=== PATIENT | female | born 1995 | race Caucasian/White ===

== ENCOUNTER 2019-12-30 22:05 | Emergency (ER) | payer OTHER ==
[2019-12-30] MEDS: HYDROmorphone 2 MG/ML SDV IM ONE ×2 (22:46→22:59)
[2019-12-30] MEDS ORDERED: Ketorolac 60 MG/2 ML SDV IM ONE (22:51)
--- NOTE | 2019-12-30 22:56 | EDM.PDOC ---
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 Started about a week ago,felt initially like period cramps. LMP was 5 weeks ago,and she reports a positive urine test a few days ao at home. Today it got worse,with onset of vaginal bleeding ED ROS GENERAL - Review of Systems Review Of Systems: Comprehensive ROS is negative, except as noted in HPI. ED EXAM - Physical Exam Exam: See Below Exam Limited By: No Limitations General Appearance: Alert, WD/WN Neck: Normal Inspection Respiratory/Chest: No Respiratory Distress Cardiovascular: Normal Peripheral Pulses GI/Abdominal Exam: Normal Bowel Sounds, Tender (LLQ) Neurological: Alert Psychiatric: Anxious, Tearful Course - Orders/Labs/Meds Labs: Laboratory Tests 12/30/19 12/30/19 12/30/19 Range/Units 22:30 22:30 22:45 WBC 11.2 (4.5-12.0) X10-3/uL RBC 4.19 (3.23-5.20) x10(6)uL Hgb 11.9 (11.5-15.5) g/dL Hct 37.0 (30.0-51.3) % MCV 88.4 (80-96) fL MCH 28.4 (27.7-33.6) pg MCHC 32.1 L (32.2-35.4) g/dL RDW 12.5 (11.5-15.5) % Plt Count 378 H (125-369) X10(3)uL MPV 9.1 (7.4-10.4) fL Neut % (Auto) 62.1 (46-82) % Lymph % (Auto) 29.1 (13-37) % [place] % (Auto) 7.3 (4-12) % Eos % (Auto) 1 (1.0-5.0) % Baso % (Auto) 1 (0-2) % Neut # (Auto) 7.0 (1.6-8.3) # Lymph # (Auto) 3.2 (0.6-5.0) # Bladen # (Auto) 0.8 (0.0-1.3) # Eos # (Auto) 0.1 (0.0-0.8) # Baso # (Auto) 0.1 (0.0-0.2) # Sodium (135-145) mmol/L Potassium (3.5-5.3) mmol/L Chloride (100-110) mmol/L Carbon Dioxide (21-32) mmol/L BUN (7-18) mg/dL Creatinine (0.55-1.02) mg/dL Est Cr Clr Drug Dosing Estimated GFR (MDRD) (>60) BUN/Creatinine Ratio (9-20) Glucose (80-116) mg/dL Calcium (8.6-10.2) mg/dL HCG, Quant (<5) mIU/mL Urine Color Red (YELLOW) Urine Appearance Cloudy (CLEAR) Urine pH 7.0 H (5.0-6.5) Ur Specific [place] 1.015 (1.010-1.025) Urine Protein 100 H (NEGATIVE) mg/dL Urine Glucose (UA) Normal (NORMAL) mg/dL Urine Ketones Negative (NEGATIVE) mg/dL Urine Occult Blood Large H (NEGATIVE) Urine Nitrite Negative (NEGATIVE) Urine Bilirubin Negative (NEGATIVE) Urine Urobilinogen Normal (NEGATIVE) mg/dL Ur Leukocyte Esterase Moderate H (NEGATIVE) Urine RBC Packed H (0-5) Urine WBC 0-5 (0-5) Ur Squamous Epith Cells Rare (NS,R,O) Urine Bacteria Rare H (NS) Urine HCG, Qual Negative (NEGATIVE) 12/30/19 12/30/19 Range/Units 22:45 22:45 WBC (4.5-12.0) X10-3/uL RBC (3.23-5.20) x10(6)uL Hgb (11.5-15.5) g/dL Hct (30.0-51.3) % MCV (80-96) fL MCH (27.7-33.6) pg MCHC (32.2-35.4) g/dL RDW (11.5-15.5) % Plt Count (125-369) X10(3)uL MPV (7.4-10.4) fL Neut % (Auto) (46-82) % Lymph % (Auto) (13-37) % [place] % (Auto) (4-12) % Eos % (Auto) (1.0-5.0) % Baso % (Auto) (0-2) % Neut # (Auto) (1.6-8.3) # Lymph # (Auto) (0.6-5.0) # [place] # (Auto) (0.0-1.3) # Eos # (Auto) (0.0-0.8) # Baso # (Auto) (0.0-0.2) # Sodium 139 (135-145) mmol/L Potassium 3.9 (3.5-5.3) mmol/L Chloride 103 (100-110) mmol/L Carbon Dioxide 28 (21-32) mmol/L BUN 15 (7-18) mg/dL Creatinine 1.1 H (0.55-1.02) mg/dL Est Cr Clr Drug Dosing TNP Estimated GFR (MDRD) > 60 (>60) BUN/Creatinine Ratio 13.6 (9-20) Glucose 87 (80-116) mg/dL Calcium 8.9 (8.6-10.2) mg/dL HCG, Quant < 5 L (<5) mIU/mL Urine Color (YELLOW) Urine Appearance (CLEAR) Urine pH (5.0-6.5) Ur Specific [place] (1.010-1.025) Urine Protein (NEGATIVE) mg/dL Urine Glucose (UA) (NORMAL) mg/dL Urine Ketones (NEGATIVE) mg/dL Urine Occult Blood (NEGATIVE) Urine Nitrite (NEGATIVE) Urine Bilirubin (NEGATIVE) Urine Urobilinogen (NEGATIVE) mg/dL Ur Leukocyte Esterase (NEGATIVE) Urine RBC (0-5) Urine WBC (0-5) Ur Squamous Epith Cells (NS,R,O) Urine Bacteria (NS) Urine HCG, Qual (NEGATIVE) Meds: Medications Discontinued Medications Generic Name Dose Route Start Last Admin Trade Name Freq PRN Reason Stop Dose Admin Hydromorphone HCl 1 mg 12/30/19 22:43 12/30/19 22:59 Dilaudid IM 12/30/19 22:44 Not Given ONETIME ONE Ketorolac Tromethamine 60 mg 12/30/19 22:51 12/30/19 22:55 Toradol IM 12/30/19 22:52 60 mg ONETIME ONE Administration Departure - Departure Time of Disposition: 05:27 Disposition: Home, Self-Care 01 Condition: Good Clinical Impression: Complete - Discharge Information Instructions: Threatened Miscarriage, [id number] Referrals: PCP,None [Primary Care Provider] - Forms: ED Department Discharge Care Plan Goals: Follow up with primary care provider early next week. - Problem List & Annotations (1) Complete SNOMED Code(s): 095374184 Code(s): O03.9 - COMPLETE OR UNSP SPONTANEOUS WITHOUT COMPLICATION Status: Acute - Problem List Review Problem List Initiated/Reviewed/Updated: Yes - Assessment/Plan Plan: We are unable to obtain US tonight.HCG test is less than 5(Quant) and urine preg is negative. I gave her Toradol 60 mg IM. Follow up PRN
== END 2019-12-30 23:30 | disposition home or self-care (01) ==
LOC: FB.ED 22:05
DX: O03.9 Complete or unspecified spontaneous abortion without complication (principal)
CPT/HCPCS: 36415; 80048; 81001; 81025; 84702; 85025; 96372; 99284; J1885; J1170

== ENCOUNTER 2020-01-21 18:55 | Emergency (ER) | payer MEDICAID, OTHER ==
[2020-01-21] MEDS ORDERED: Sodium Chloride 0.9% 10 ML Syringe FLUSH PRN (19:09)
[2020-01-21] MEDS ORDERED: Sodium Chloride 0.9% 1,000 ML IV SCH (19:15)
[2020-01-21] MEDS ORDERED: Ketorolac 30 MG/ML SDV IVPUSH ONE (19:34)
--- NOTE | 2020-01-21 20:48 | EDM.PDOC ---
ED HPI GENERAL MEDICAL PROBLEM - General Chief Complaint: General Stated Complaint: syncope Time Seen by Provider: 01/21/20 19:10 Source of Information: Reports: Patient, EMS History Limitations: Reports: No Limitations - History of Present Illness INITIAL COMMENTS - FREE TEXT/NARRATIVE: Patient presented to the ED because of syncopal episode at noon yesterday. The syncopal episode was preceded by nausea and vomiting. Last night while at [employer] she apparently felt dizzy ,passed out and and had a brief episode of seizure. She also c/o 10/26 headache ove the frontal area. denies any fever,neck stiffness. - Related Data Allergies Allergy/AdvReac Type Severity Reaction Status Date / Time topiramate [From Topamax] Allergy Rash Verified 01/21/20 19:04 venlafaxine [From Effexor] Allergy Rash Verified 01/21/20 19:04 Home Meds: Home Meds traZODone 200 mg PO BEDTIME 01/04/20 [History] Past Medical History Psychiatric History: Reports: Depression Other Psychiatric History: Takes meds. Social & Family History - Tobacco Use Smoking Status *Q: Never Smoker - Caffeine Use Caffeine Use: Reports: None - Recreational Drug Use Recreational Drug Use: No ED ROS GENERAL - Review of Systems Review Of Systems: See Below Constitutional: Reports: No Symptoms HEENT: Reports: No Symptoms Respiratory: Reports: No Symptoms Cardiovascular: Reports: No Symptoms Endocrine: Reports: No Symptoms GI/Abdominal: Reports: Nausea, Vomiting : Reports: No Symptoms Musculoskeletal: Reports: No Symptoms Skin: Reports: No Symptoms Neurological: Reports: Headache, Seizure, Syncope Psychiatric: Reports: No Symptoms Hematologic/Lymphatic: Reports: No Symptoms ED EXAM, GENERAL - Physical Exam Exam: See Below Exam Limited By: No Limitations General Appearance: Alert, No Apparent Distress Eye Exam: Bilateral Eye: PERRL Ears: Normal External Exam, Normal Canal, Hearing Grossly Normal Nose: Normal Inspection, Normal Mucosa, No Blood Throat/Mouth: Normal Inspection, Normal Lips, Normal Teeth, Normal Gums Head: Atraumatic, Normocephalic Neck: Normal Inspection, Supple, Non-Tender, Full Range of Motion Respiratory/Chest: No Respiratory Distress, Lungs Clear, Normal Breath Sounds Cardiovascular: Normal Peripheral Pulses, Regular Rate, Rhythm, No Edema, No Gallop GI/Abdominal: Normal Bowel Sounds, Soft, Non-Tender, No Organomegaly Back Exam: Normal Inspection, Full Range of Motion Extremities: Normal Inspection, Normal Range of Motion, Non-Tender Neurological: Alert, Oriented, CN II-XII Intact, Normal Cognition, Normal Gait Psychiatric: Normal Affect, Flat Affect Skin Exam: Warm, Dry, Intact Course - Vital Signs Text/Narrative:: Labs/EKG/Head CT was discussed with patient NS 1 L bolus Toradol 30 mg IV x1 Last Recorded V/S: Last Vital Signs Temp 36.9 C 01/21/20 19:00 Pulse 70 01/21/20 19:00 Resp 16 01/21/20 19:00 BP 127/77 01/21/20 19:00 Pulse Ox 99 01/21/20 19:00 - Orders/Labs/Meds Orders: Active Orders 24 hr Category Date Time Status EKG Documentation Completion [RC] ASDIRECTED Care 01/21/20 19:10 Active Head wo Cont [CT] Stat Exams 01/21/20 19:09 Taken DRUG SCREEN, URINE ALERE [URCHEM] Stat Lab 01/21/20 19:24 Ordered HCG QUALITATIVE,URINE [URCHEM] Stat Lab 01/21/20 19:09 Ordered Sodium Chloride 0.9% [Normal Saline] 1,000 ml Med 01/21/20 19:15 Active IV ASDIRECTED Sodium Chloride 0.9% [Saline Flush] Med 01/21/20 19:09 Active 10 ml FLUSH ASDIRECTED PRN Saline Lock Insert [OM.PC] Routine Oth 01/21/20 19:09 Ordered EKG 12 Lead [EK] Routine Ther 01/21/20 19:09 Ordered Medication Orders Sodium Chloride (Normal Saline) 1,000 mls @ 999 mls/hr IV ASDIRECTED YUKI Last Admin: 01/21/20 19:20 Dose: 999 mls/hr Documented by: CLEVE Sodium Chloride (Saline Flush) 10 ml FLUSH ASDIRECTED PRN PRN Reason: Keep Vein Open Last Admin: 01/21/20 19:00 Dose: 10 ml Documented by: CLEVE Labs: Laboratory Tests 01/21/20 01/21/20 01/21/20 Range/Units 19:25 19:25 19:25 WBC 9.1 (4.5-12.0) X10-3/uL RBC 4.24 (3.23-5.20) x10(6)uL Hgb 12.5 (11.5-15.5) g/dL Hct 37.3 (30.0-51.3) % MCV 87.9 (80-96) fL MCH 29.4 (27.7-33.6) pg MCHC 33.5 (32.2-35.4) g/dL RDW 12.8 (11.5-15.5) % Plt Count 331 (125-369) X10(3)uL MPV 9.0 (7.4-10.4) fL Neut % (Auto) 62.1 (46-82) % Lymph % (Auto) 26.2 (13-37) % [place] % (Auto) 8.8 (4-12) % Eos % (Auto) 3 (1.0-5.0) % Baso % (Auto) 0 (0-2) % Neut # (Auto) 5.7 (1.6-8.3) # Lymph # (Auto) 2.4 (0.6-5.0) # [place] # (Auto) 0.8 (0.0-1.3) # Eos # (Auto) 0.2 (0.0-0.8) # Baso # (Auto) 0.0 (0.0-0.2) # Sodium 139 (135-145) mmol/L Potassium 3.9 (3.5-5.3) mmol/L Chloride 102 (100-110) mmol/L Carbon Dioxide 28 (21-32) mmol/L BUN 11 (7-18) mg/dL Creatinine 1.1 H (0.55-1.02) mg/dL Est Cr Clr Drug Dosing 80.24 mL/min Estimated GFR (MDRD) > 60 (>60) BUN/Creatinine Ratio 10.0 (9-20) Glucose 88 (80-116) mg/dL Calcium 8.7 (8.6-10.2) mg/dL Total Bilirubin 0.4 (0.1-1.3) mg/dL AST 17 (5-25) IU/L ALT 20 (12-36) U/L Alkaline Phosphatase 68 (56-112) IU/L Total Protein 7.6 (6.0-8.0) g/dL Albumin 3.5 (3.5-5.2) g/dL Globulin 4.1 g/dL Albumin/Globulin Ratio 0.9 TSH, Ultra Sensitive 2.13 (0.36-3.74) IU/mL Ethyl Alcohol (<0.03) % 01/21/20 Range/Units 19:25 WBC (4.5-12.0) X10-3/uL RBC (3.23-5.20) x10(6)uL Hgb (11.5-15.5) g/dL Hct (30.0-51.3) % MCV (80-96) fL MCH (27.7-33.6) pg MCHC (32.2-35.4) g/dL RDW (11.5-15.5) % Plt Count (125-369) X10(3)uL MPV (7.4-10.4) fL Neut % (Auto) (46-82) % Lymph % (Auto) (13-37) % [place] % (Auto) (4-12) % Eos % (Auto) (1.0-5.0) % Baso % (Auto) (0-2) % Neut # (Auto) (1.6-8.3) # Lymph # (Auto) (0.6-5.0) # [place] # (Auto) (0.0-1.3) # Eos # (Auto) (0.0-0.8) # Baso # (Auto) (0.0-0.2) # Sodium (135-145) mmol/L Potassium (3.5-5.3) mmol/L Chloride (100-110) mmol/L Carbon Dioxide (21-32) mmol/L BUN (7-18) mg/dL Creatinine (0.55-1.02) mg/dL Est Cr Clr Drug Dosing mL/min Estimated GFR (MDRD) (>60) BUN/Creatinine Ratio (9-20) Glucose (80-116) mg/dL Calcium (8.6-10.2) mg/dL Total Bilirubin (0.1-1.3) mg/dL AST (5-25) IU/L ALT (12-36) U/L Alkaline Phosphatase (56-112) IU/L Total Protein (6.0-8.0) g/dL Albumin (3.5-5.2) g/dL Globulin g/dL Albumin/Globulin Ratio TSH, Ultra Sensitive (0.36-3.74) IU/mL Ethyl Alcohol < 0.03 (<0.03) % Meds: Medications Generic Name Dose Route Start Last Admin Trade Name Jeffrey PRN Reason Stop Dose Admin Sodium Chloride 1,000 mls @ 999 mls/hr 01/21/20 19:15 01/21/20 19:20 Normal Saline IV 999 mls/hr ASDIRECTED YUKI Administration Sodium Chloride 10 ml 01/21/20 19:09 01/21/20 19:00 Saline Flush FLUSH 10 ml ASDIRECTED PRN Administration Keep Vein Open Discontinued Medications Generic Name Dose Route Start Last Admin Trade Name Jeffrey PRN Reason Stop Dose Admin Ketorolac Tromethamine 30 mg 01/21/20 19:34 01/21/20 19:48 Toradol IVPUSH 01/21/20 19:35 30 mg ONETIME ONE Administration Departure - Departure Time of Disposition: 20:55 Disposition: Home, Self-Care 01 Condition: Good Clinical Impression: Dehydration, Syncope - Discharge Information Instructions: Dehydration, Adult, [id number], Syncope, [id number] Referrals: PCP,None [Primary Care Provider] - Forms: ED Department Discharge Additional Instructions: Please read discharge instructions on dehydration and syncope Increase oral fluids Take ibuprofen 800 mg with tylenol 1000 mg every 8 hours as needed for pain Follow up with your doctor so you can be referred to see a Neurologist(brain specialist) who will evaluate you if you have seizure or not Sepsis Event Note (ED) - Evaluation Sepsis Screening Result: No Definite Risk - Focused Exam Vital Signs: Vital Signs Temp Pulse Resp BP Pulse Ox 01/21/20 19:00 36.9 C 70 16 127/77 99 - My Orders Last 24 Hours: My Active Orders 01/21/20 19:09 Head wo Cont [CT] Stat HCG QUALITATIVE,URINE [URCHEM] Stat Sodium Chloride 0.9% [Saline Flush] 10 ml FLUSH ASDIRECTED PRN Saline Lock Insert [OM.PC] Routine EKG 12 Lead [EK] Routine 01/21/20 19:10 EKG Documentation Completion [RC] ASDIRECTED 01/21/20 19:15 Sodium Chloride 0.9% [Normal Saline] 1,000 ml IV ASDIRECTED 01/21/20 19:24 DRUG SCREEN, URINE ALERE [URCHEM] Stat - Assessment/Plan Last 24 Hours: My Active Orders 01/21/20 19:09 Head wo Cont [CT] Stat HCG QUALITATIVE,URINE [URCHEM] Stat Sodium Chloride 0.9% [Saline Flush] 10 ml FLUSH ASDIRECTED PRN Saline Lock Insert [OM.PC] Routine EKG 12 Lead [EK] Routine 01/21/20 19:10 EKG Documentation Completion [RC] ASDIRECTED 01/21/20 19:15 Sodium Chloride 0.9% [Normal Saline] 1,000 ml IV ASDIRECTED 01/21/20 19:24 DRUG SCREEN, URINE ALERE [URCHEM] Stat
== END 2020-01-21 21:53 | disposition home or self-care (01) ==
LOC: FB.ED 18:55
DX: E86.0 Dehydration (principal); F32.9 Major depressive disorder, single episode, unspecified; Z79.899 Other long term (current) drug therapy; Z88.8 Allergy status to other drugs, medicaments and biological substances
CPT/HCPCS: 36415; 70450; 80053; 80307; 84443; 85025; 93005; 96361; 96374; 99285; J1885; J7030

== ENCOUNTER 2020-03-22 21:17 | Emergency (ER) | payer BC, MEDICAID, OTHER ==
--- NOTE | 2020-03-22 22:33 | EDM.PDOC ---
ED HPI GENERAL MEDICAL PROBLEM - General Chief Complaint: Abdominal Pain Stated Complaint: cramps Time Seen by Provider: 03/22/20 21:30 Source of Information: Reports: Patient History Limitations: Reports: No Limitations - History of Present Illness INITIAL COMMENTS - FREE TEXT/NARRATIVE: bilateral flank pains since about 3-4 weeks , was seen and treated forUI , complete course of antibiotics and cramps still present in both fanks andin the suprapubic region has normal BM , though thought she may be constipated in an instant has had gaseous distension pt is trying to get - Related Data Allergies Allergy/AdvReac Type Severity Reaction Status Date / Time topiramate [From Topamax] Allergy Rash Verified 01/21/20 19:04 venlafaxine [From Effexor] Allergy Rash Verified 01/21/20 19:04 Home Meds: Home Meds traZODone 200 mg PO BEDTIME 01/04/20 [History] Escitalopram [Lexapro] 20 mg PO DAILY 03/22/20 [History] buPROPion HCL [Wellbutrin Xl] 300 mg PO DAILY 03/22/20 [History] Past Medical History HEENT History: Reports: None Cardiovascular History: Reports: None Respiratory History: Reports: None Gastrointestinal History: Reports: None Genitourinary History: Reports: None [employer] History: Reports: Spontaneous Neurological History: Reports: None Psychiatric History: Reports: Anxiety, Depression Other Psychiatric History: Takes meds. Endocrine/Metabolic History: Reports: Obesity/BMI 30+ Hematologic History: Reports: None Immunologic History: Reports: None Oncologic (Cancer) History: Reports: None Dermatologic History: Reports: None - Infectious Disease History Infectious Disease History: Reports: Novel Coronavirus Social & Family History - Family History Family Medical History: No Pertinent Family History - Tobacco Use Tobacco Use Status *Q: Never Tobacco User - Caffeine Use Caffeine Use: Reports: None - Recreational Drug Use Recreational Drug Use: No ED ROS GENERAL - Review of Systems Review Of Systems: See Below Constitutional: Reports: No Symptoms, Weight Gain Respiratory: Reports: No Symptoms Cardiovascular: Reports: No Symptoms Endocrine: Reports: No Symptoms GI/Abdominal: Reports: Abdominal Pain, Constipation, Distension, Flatus. Denies: Decreased Appetite, Mucous in Stool, Nausea, Stool Incontinence, Vomiting : Reports: No Symptoms Musculoskeletal: Reports: No Symptoms Skin: Reports: No Symptoms ED EXAM, GI/ABD - Physical Exam Exam: See Below Exam Limited By: No Limitations General Appearance: Alert, WD/WN, Moderate Distress Eyes: Bilateral: EOMI Ears: Normal External Exam Nose: Normal Inspection Throat/Mouth: Normal Oropharynx Head: Atraumatic, Normocephalic Neck: Normal Inspection, Supple Respiratory/Chest: No Respiratory Distress, Lungs Clear Cardiovascular: Normal Peripheral Pulses, No Rub GI/Abdominal Exam: Normal Bowel Sounds, Soft, Non-Tender, Distended Rectal (Female) Exam: Normal Rectal Tone Back Exam: Normal Inspection Neurological: Alert, Oriented, CN II-XII Intact Psychiatric: Normal Affect Skin Exam: Warm Course - Vital Signs Last Recorded V/S: Last Vital Signs Temp 36.7 C 03/22/20 21:17 Pulse 77 03/22/20 21:17 Resp 16 03/22/20 21:17 BP 124/75 03/22/20 21:17 Pulse Ox 99 03/22/20 21:17 - Orders/Labs/Meds Labs: Laboratory Tests 03/22/20 03/22/20 Range/Units 21:39 21:40 HCG, Quant < 5 L (<5) mIU/mL Urine Color Yellow (YELLOW) Urine Appearance Clear (CLEAR) Urine pH 5.0 (5.0-6.5) Ur Specific [place] 1.025 (1.010-1.025) Urine Protein Negative (NEGATIVE) mg/dL Urine Glucose (UA) Normal (NORMAL) mg/dL Urine Ketones Negative (NEGATIVE) mg/dL Urine Occult Blood Negative (NEGATIVE) Urine Nitrite Negative (NEGATIVE) Urine Bilirubin Negative (NEGATIVE) Urine Urobilinogen 1 H (NEGATIVE) mg/dL Ur Leukocyte Esterase Negative (NEGATIVE) Urine RBC 0-5 (0-5) Urine WBC 0-5 (0-5) Ur Squamous Epith Cells Few H (NS,R,O) Urine Bacteria Rare H (NS) Departure - Departure Time of Disposition: 22:31 Disposition: Home, Self-Care 01 Condition: Good Clinical Impression: Abdominal distension (gaseous), Abdominal pain - Discharge Information *PRESCRIPTION DRUG MONITORING PROGRAM REVIEWED*: Not Applicable *COPY OF PRESCRIPTION DRUG MONITORING REPORT IN PATIENT ELI: Not Applicable Instructions: Flank Pain, Adult, [id number] Referrals: PCP,None [Primary Care Provider] - Additional Instructions: Take probiotics as discussed Start vitamins Sepsis Event Note (ED) - Evaluation Sepsis Screening Result: No Definite Risk - Focused Exam Vital Signs: Vital Signs Temp Pulse Resp BP Pulse Ox 03/22/20 21:17 36.7 C 77 16 124/75 99
== END 2020-03-22 22:52 | disposition home or self-care (01) ==
LOC: FB.ED 21:17
DX: R14.0 Abdominal distension (gaseous) (principal); F41.9 Anxiety disorder, unspecified; F32.9 Major depressive disorder, single episode, unspecified; E66.9 Obesity, unspecified; Z68.32 Body mass index [BMI] 32.0-32.9, adult; Z88.8 Allergy status to other drugs, medicaments and biological substances; Z79.899 Other long term (current) drug therapy
CPT/HCPCS: 36415; 81001; 84702; 99282; 99284

== ENCOUNTER 2020-04-01 20:27 | Emergency (ER) | payer BC ==
[2020-04-01] MEDS ORDERED: Dexamethasone 4 MG Tab PO STA (20:53)
[2020-04-01] MEDS ORDERED: Ketorolac 60 MG/2 ML SDV IM ONE (20:55)
--- NOTE | 2020-04-01 21:39 | EDM.PDOC ---
ED HPI GENERAL MEDICAL PROBLEM - General Chief Complaint: Chest Pain Stated Complaint: COVID Time Seen by Provider: 04/01/20 20:40 Source of Information: Reports: Patient History Limitations: Reports: No Limitations - History of Present Illness INITIAL COMMENTS - FREE TEXT/NARRATIVE: Patient presented to the ED because of chest pain over the sternal area which started 3 days ago and is getting worse. There is no cough/cold, fever,chils. Denies any N/D. She was diagnosed with Covid on 03/27/20. Midsternal chest pain Pain Score (Numeric/FACES): 7 - Related Data Allergies Allergy/AdvReac Type Severity Reaction Status Date / Time topiramate [From Topamax] Allergy Rash Verified 04/01/20 20:45 venlafaxine [From Effexor] Allergy Rash Verified 04/01/20 20:45 Home Meds: Home Meds traZODone 100 mg PO BEDTIME 01/04/20 [History] Escitalopram [Lexapro] 20 mg PO DAILY 03/22/20 [History] buPROPion HCL [Wellbutrin Xl] 150 mg PO DAILY 03/22/20 [History] Albuterol [Ventolin HFA] 2 puff .XX Q4H PRN 04/01/20 [History] dexAMETHasone [Dexamethasone] 8 mg PO DAILY #30 tablet 04/01/20 [Rx] Past Medical History HEENT History: Reports: None Cardiovascular History: Reports: None Respiratory History: Reports: None Gastrointestinal History: Reports: None Genitourinary History: Reports: None 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 Endocrine/Metabolic History: Reports: Obesity/BMI 30+ Hematologic History: Reports: None Immunologic History: Reports: None Oncologic (Cancer) History: Reports: None Dermatologic History: Reports: None - Infectious Disease History Infectious Disease History: Reports: Novel Coronavirus Social & Family History - Family History Family Medical History: No Pertinent Family History - Caffeine Use Caffeine Use: Reports: None ED ROS GENERAL - Review of Systems Review Of Systems: See Below Constitutional: Reports: No Symptoms HEENT: Reports: No Symptoms Respiratory: Reports: No Symptoms Cardiovascular: Reports: Chest Pain Endocrine: Reports: No Symptoms GI/Abdominal: Reports: No Symptoms : Reports: No Symptoms Musculoskeletal: Reports: No Symptoms Skin: Reports: No Symptoms Neurological: Reports: No Symptoms Psychiatric: Reports: No Symptoms ED EXAM, GENERAL - Physical Exam Exam: See Below Exam Limited By: No Limitations General Appearance: Alert, No Apparent Distress Eye Exam: Bilateral Eye: PERRL Ears: Normal External Exam Nose: Normal Inspection Throat/Mouth: Normal Inspection Head: Atraumatic, Normocephalic Neck: Normal Inspection, Supple, Non-Tender Respiratory/Chest: No Respiratory Distress, Lungs Clear, Normal Breath Sounds Cardiovascular: Normal Peripheral Pulses, Regular Rate, Rhythm, No Edema GI/Abdominal: Normal Bowel Sounds, Soft, Non-Tender, No Organomegaly Back Exam: Normal Inspection Extremities: Normal Inspection, Normal Range of Motion Course - Vital Signs Text/Narrative:: Labs/EKG/CXR was discussed with patient EKG-NSR Toradol 60 mg IM x1 Decadron 10 mg PO x1 Last Recorded V/S: Last Vital Signs Temp 36.4 C 04/01/20 20:30 Pulse 72 04/01/20 20:30 Resp 18 04/01/20 20:30 BP 125/79 04/01/20 20:30 Pulse Ox 99 04/01/20 20:30 - Orders/Labs/Meds Orders: Active Orders 24 hr Category Date Time Status EKG Documentation Completion [RC] ASDIRECTED Care 04/01/20 20:57 Active Chest 1V Frontal [CR] Stat Exams 04/01/20 20:50 Taken EKG 12 Lead [EK] Routine Ther 04/01/20 20:56 Ordered Labs: Laboratory Tests 04/01/20 04/01/20 04/01/20 Range/Units 21:05 21:05 21:05 WBC 9.1 (3.0-10.3) x10-3/uL RBC 4.49 (3.60-5.20) x10(6)uL Hgb 12.8 (11.4-15.5) g/dL Hct 39.0 (34.2-48.2) % MCV 86.9 (76.7-100.5) fL MCH 28.5 (23.9-33.9) pg MCHC 32.8 (31.9-34.8) g/dL RDW 13.9 (12.3-16.5) % Plt Count 335 (151-488) x10(3)uL MPV 9.7 (7.1-12.4) fL Neut % (Auto) 61.2 (30.8-76.2) % Lymph % (Auto) 25.7 (18.4-52.1) % [place] % (Auto) 8.5 (4.4-15.7) % Eos % (Auto) 4.0 (0.6-8.1) % Baso % (Auto) 0.6 (0.2-1.5) % Neut # (Auto) 5.6 (1.5-6.3) x10-3/uL Lymph # (Auto) 2.3 (1.0-4.4) x10-3/uL [place] # (Auto) 0.8 (0.3-1.0) x10-3/uL Eos # (Auto) 0.4 (0.0-0.8) x10-3/uL Baso # (Auto) 0.1 (0.0-0.1) x10-3/uL D-Dimer, Quantitative 0.25 (0.0-0.59) mg/LFEU Sodium 140 (135-145) mmol/L Potassium 4.1 (3.5-5.3) mmol/L Chloride 102 (100-110) mmol/L Carbon Dioxide 28 (21-32) mmol/L BUN 10 (7-18) mg/dL Creatinine 0.8 (0.55-1.02) mg/dL Est Cr Clr Drug Dosing 102.39 mL/min Estimated GFR (MDRD) > 60 (>60) BUN/Creatinine Ratio 12.5 (9-20) Glucose 88 (80-116) mg/dL Calcium 9.1 (8.6-10.2) mg/dL Total Bilirubin 0.2 (0.1-1.3) mg/dL AST 14 D (5-25) IU/L ALT 20 (12-36) U/L Alkaline Phosphatase 76 (56-112) IU/L Troponin I (4.0-60.3) pg/mL NT-Pro-B Natriuret Pep (<=125) pg/mL Total Protein 7.5 (6.0-8.0) g/dL Albumin 3.5 (3.5-5.2) g/dL Globulin 4.0 g/dL Albumin/Globulin Ratio 0.9 12/14/ Range/Units 21:05 WBC (3.0-10.3) x10-3/uL RBC (3.60-5.20) x10(6)uL Hgb (11.4-15.5) g/dL Hct (34.2-48.2) % MCV (76.7-100.5) fL MCH (23.9-33.9) pg MCHC (31.9-34.8) g/dL RDW (12.3-16.5) % Plt Count (151-488) x10(3)uL MPV (7.1-12.4) fL Neut % (Auto) (30.8-76.2) % Lymph % (Auto) (18.4-52.1) % [place] % (Auto) (4.4-15.7) % Eos % (Auto) (0.6-8.1) % Baso % (Auto) (0.2-1.5) % Neut # (Auto) (1.5-6.3) x10-3/uL Lymph # (Auto) (1.0-4.4) x10-3/uL [place] # (Auto) (0.3-1.0) x10-3/uL Eos # (Auto) (0.0-0.8) x10-3/uL Baso # (Auto) (0.0-0.1) x10-3/uL D-Dimer, Quantitative (0.0-0.59) mg/LFEU Sodium (135-145) mmol/L Potassium (3.5-5.3) mmol/L Chloride (100-110) mmol/L Carbon Dioxide (21-32) mmol/L BUN (7-18) mg/dL Creatinine (0.55-1.02) mg/dL Est Cr Clr Drug Dosing mL/min Estimated GFR (MDRD) (>60) BUN/Creatinine Ratio (9-20) Glucose (80-116) mg/dL Calcium (8.6-10.2) mg/dL Total Bilirubin (0.1-1.3) mg/dL AST (5-25) IU/L ALT (12-36) U/L Alkaline Phosphatase (56-112) IU/L Troponin I 4.1 (4.0-60.3) pg/mL NT-Pro-B Natriuret Pep 41 (<=125) pg/mL Total Protein (6.0-8.0) g/dL Albumin (3.5-5.2) g/dL Globulin g/dL Albumin/Globulin Ratio Meds: Medications Discontinued Medications Generic Name Dose Route Start Last Admin Trade Name Jeffrey PRN Reason Stop Dose Admin Dexamethasone 10 mg 04/01/20 20:53 04/01/20 21:29 Dexamethasone PO 04/01/20 20:54 10 mg NOW STA Administration Ketorolac Tromethamine 60 mg 04/01/20 20:55 04/01/20 21:29 Toradol IM 04/01/20 20:56 60 mg ONETIME ONE Administration Departure - Departure Time of Disposition: 22:00 Disposition: Home, Self-Care 01 Condition: Good Clinical Impression: COVID-19 - Discharge Information Prescriptions: dexAMETHasone [Dexamethasone] 8 mg PO DAILY #30 tablet Instructions: COVID-19 Frequently Asked Questions Referrals: PCP,None [Primary Care Provider] - Forms: ED Department Discharge Additional Instructions: Please read discharge instructions on Covid 19 Take decadron 6 mg daily for 14 days Increase oral fluids Take Vit C-500 mg, D-2000 Units , Zinc -50mg daily for 2 weeks Follow up as needed Sepsis Event Note (ED) - Evaluation Sepsis Screening Result: No Definite Risk - Focused Exam Vital Signs: Vital Signs Temp Pulse Resp BP Pulse Ox 04/01/20 20:30 36.4 C 72 18 125/79 99 - My Orders Last 24 Hours: My Active Orders 04/01/20 20:50 Chest 1V Frontal [CR] Stat 04/01/20 20:56 EKG 12 Lead [EK] Routine 04/01/20 20:57 EKG Documentation Completion [RC] ASDIRECTED - Assessment/Plan Last 24 Hours: My Active Orders 04/01/20 20:50 Chest 1V Frontal [CR] Stat 04/01/20 20:56 EKG 12 Lead [EK] Routine 04/01/20 20:57 EKG Documentation Completion [RC] ASDIRECTED
--- NOTE | 2020-04-02 16:10 | CR ---
INDICATION: Chest pain, COVID positive. CHEST ONE VIEW: Portable AP upright view of the chest was obtained 04/01/20 - no comparison. The heart, mediastinum and bony thorax are unremarkable. No consolidating pneumonia or effusion was identified. However, there is moderate bronchial wall cuffing at the lung bases, which may be on the basis of active peribronchial disease and should be correlated clinically. MTDD
== END 2020-04-01 22:17 | disposition home or self-care (01) ==
LOC: FB.ED 20:27
DX: U07.1 COVID-19 (principal); F41.9 Anxiety disorder, unspecified; F32.9 Major depressive disorder, single episode, unspecified; E66.9 Obesity, unspecified; Z68.32 Body mass index [BMI] 32.0-32.9, adult; Z88.8 Allergy status to other drugs, medicaments and biological substances; Z79.899 Other long term (current) drug therapy
CPT/HCPCS: 36415; 71045; 80053; 83880; 84484; 85025; 85379; 93005; 96372; 99285-25; J1885; J8540

== ENCOUNTER 2020-04-05 11:33 | Emergency (ER) | payer BC, OTHER ==
[2020-04-05] MEDS ORDERED: Ketorolac 60 MG/2 ML SDV IM ONE (11:51)
[2020-04-05] MEDS ORDERED: Acetaminophen/oxyCODONE 325-5 MG Tab PO PRN (11:52)
[2020-04-05] MEDS ORDERED: Cyclobenzaprine 10 MG Tab PO ONE (11:53)
[2020-04-05] MEDS ORDERED: Acetaminophen/oxyCODONE 325-5 MG Tab PO ONE (11:55)
[2020-04-05] MEDS ORDERED: Sodium Chloride 0.9% 10 ML Syringe FLUSH PRN ×2 (13:16→13:21)
[2020-04-05] MEDS ORDERED: Alum Hydroxide/Mag Hydroxide 15 ML, Lidocaine 2% 15 ML PO ONE ×4 (13:21→13:22)
[2020-04-05] MEDS ORDERED: Ondansetron 4 MG Tab.DIS PO ONE (13:25)
[2020-04-05] MEDS ORDERED: Sodium Chloride 0.9% 1,000 ML IV SCH (13:30)
[2020-04-05] MEDS ORDERED: Iopamidol 755 Mg/ML 100 ML Bottle IV ONE (13:58)
--- NOTE | 2020-04-05 15:41 | EDM.PDOC ---
ED HPI GENERAL MEDICAL PROBLEM - General Chief Complaint: Abdominal Pain Stated Complaint: COVID ??? Time Seen by Provider: 04/05/20 14:01 Source of Information: Reports: Patient History Limitations: Reports: No Limitations - History of Present Illness INITIAL COMMENTS - FREE TEXT/NARRATIVE: Patient presented to the ED because of epigastric and LUQ pain. She is Cpvid pos and was seen twice in [facility] this week because of chest pain. Cardiac work up was negative per record and a chest CT was done to R/O PE was also negative. She was discharged to home with Dexamethasone, Naproxen, Zithromax. upper and mid abd and sides Pain Score (Numeric/FACES): 10 - Related Data Allergies Allergy/AdvReac Type Severity Reaction Status Date / Time topiramate [From Topamax] Allergy Rash Verified 04/01/20 20:45 venlafaxine [From Effexor] Allergy Rash Verified 04/01/20 20:45 Home Meds: Home Meds traZODone 100 mg PO BEDTIME 01/04/20 [History] Escitalopram [Lexapro] 20 mg PO DAILY 03/22/20 [History] buPROPion HCL [Wellbutrin Xl] 150 mg PO DAILY 03/22/20 [History] Albuterol [Ventolin HFA] 2 puff .XX Q4H PRN 04/01/20 [History] Albuterol [Ventolin HFA] 2 puff INH Q4H PRN #1 inhaler 04/01/20 [Rx] dexAMETHasone [Dexamethasone] 8 mg PO DAILY #30 tablet 04/01/20 [Rx] Past Medical History HEENT History: Reports: None Cardiovascular History: Reports: None Respiratory History: Reports: Asthma Gastrointestinal History: Reports: None Genitourinary History: Reports: UTI, Recurrent 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 Endocrine/Metabolic History: Reports: Obesity/BMI 30+ Hematologic History: Reports: None Immunologic History: Reports: None Oncologic (Cancer) History: Reports: None Dermatologic History: Reports: None - Infectious Disease History Infectious Disease History: Reports: Novel Coronavirus - Past Surgical History Head Surgeries/Procedures: Reports: None Musculoskeletal Surgical History: Reports: None Social & Family History - Family History Family Medical History: No Pertinent Family History - Tobacco Use Tobacco Use Status *Q: Never Tobacco User - Caffeine Use Caffeine Use: Reports: None ED ROS GENERAL - Review of Systems Review Of Systems: See Below Constitutional: Reports: No Symptoms HEENT: Reports: No Symptoms Respiratory: Reports: No Symptoms Cardiovascular: Reports: No Symptoms Endocrine: Reports: No Symptoms GI/Abdominal: Reports: Abdominal Pain : Reports: No Symptoms Musculoskeletal: Reports: No Symptoms Skin: Reports: No Symptoms Neurological: Reports: No Symptoms Psychiatric: Reports: No Symptoms ED EXAM, GENERAL - Physical Exam Exam: See Below Exam Limited By: No Limitations General Appearance: Alert, No Apparent Distress Ears: Normal External Exam, Normal Canal Nose: Normal Inspection, Normal Mucosa, No Blood Throat/Mouth: Normal Inspection, Normal Lips, Normal Teeth Head: Atraumatic, Normocephalic Neck: Normal Inspection, Supple, Non-Tender Respiratory/Chest: No Respiratory Distress, Lungs Clear, Normal Breath Sounds Cardiovascular: Normal Peripheral Pulses, Regular Rate, Rhythm, No Edema, No Gallop, No JVD, No Murmur GI/Abdominal: Normal Bowel Sounds, Soft, No Organomegaly, Other (epigastric and LUQ tenderness) Back Exam: Normal Inspection, Full Range of Motion Extremities: Normal Inspection, Normal Range of Motion Course - Vital Signs Text/Narrative:: Labs/ABD CT was discussed with patient She is requesting for another Chest CT to see if she have PE or not but I told her there is no need because they just did one a day ago NS 1 L bolus Zofran ODT 4 mg PO x1 GI cocktail X 2 Percocet 5/325 po x1 Flexeril 10 mg PO x1 Last Recorded V/S: Last Vital Signs Temp 36.7 C 04/05/20 15:50 Pulse 59 L 04/05/20 15:50 Resp 16 04/05/20 15:50 BP 149/90 H 04/05/20 15:50 Pulse Ox 98 04/05/20 15:50 - Orders/Labs/Meds Orders: Active Orders 24 hr Category Date Time Status Saline Lock Insert [OM.PC] Routine Oth 04/05/20 13:16 Ordered Saline Lock Insert [OM.PC] Routine Oth 04/05/20 13:21 Ordered Labs: Laboratory Tests 04/05/20 04/05/20 04/05/20 Range/Units 13:40 13:40 13:40 WBC 21.6 H (3.0-10.3) x10-3/uL RBC 4.50 (3.60-5.20) x10(6)uL Hgb 12.5 (11.4-15.5) g/dL Hct 39.3 (34.2-48.2) % MCV 87.2 (76.7-100.5) fL MCH 27.8 (23.9-33.9) pg MCHC 31.9 (31.9-34.8) g/dL RDW 13.7 (12.3-16.5) % Plt Count 393 (151-488) x10(3)uL MPV 9.6 (7.1-12.4) fL Add Manual Diff Yes Neutrophils % (Manual) 93 H (46-82) % Lymphocytes % (Manual) 5 L (13-37) % Monocytes % (Manual) 2 L (4-12) % Sodium (135-145) mmol/L Potassium (3.5-5.3) mmol/L Chloride (100-110) mmol/L Carbon Dioxide (21-32) mmol/L BUN (7-18) mg/dL Creatinine (0.55-1.02) mg/dL Est Cr Clr Drug Dosing mL/min Estimated GFR (MDRD) (>60) BUN/Creatinine Ratio (9-20) Glucose (80-116) mg/dL Calcium (8.6-10.2) mg/dL Total Bilirubin (0.1-1.3) mg/dL AST (5-25) IU/L ALT (12-36) U/L Alkaline Phosphatase (56-112) IU/L Total Protein (6.0-8.0) g/dL Albumin (3.5-5.2) g/dL Globulin g/dL Albumin/Globulin Ratio Amylase (25-115) U/L Lipase (73-393) U/L Urine Color Yellow (YELLOW) Urine Appearance Slightly cloudy (CLEAR) Urine pH 6.0 (5.0-6.5) Ur Specific [place] 1.010 (1.010-1.025) Urine Protein Negative (NEGATIVE) mg/dL Urine Glucose (UA) Normal (NORMAL) mg/dL Urine Ketones Negative (NEGATIVE) mg/dL Urine Occult Blood Negative (NEGATIVE) Urine Nitrite Negative (NEGATIVE) Urine Bilirubin Negative (NEGATIVE) Urine Urobilinogen Normal (NEGATIVE) mg/dL Ur Leukocyte Esterase Negative (NEGATIVE) Urine WBC 0-5 (0-5) Ur Squamous Epith Cells Moderate H (NS,R,O) Urine Bacteria Moderate H (NS) Urine HCG, Qual Negative (NEGATIVE) 04/05/20 04/05/20 Range/Units 13:40 13:40 WBC (3.0-10.3) x10-3/uL RBC (3.60-5.20) x10(6)uL Hgb (11.4-15.5) g/dL Hct (34.2-48.2) % MCV (76.7-100.5) fL MCH (23.9-33.9) pg MCHC (31.9-34.8) g/dL RDW (12.3-16.5) % Plt Count (151-488) x10(3)uL MPV (7.1-12.4) fL Add Manual Diff Neutrophils % (Manual) (46-82) % Lymphocytes % (Manual) (13-37) % Monocytes % (Manual) (4-12) % Sodium 139 (135-145) mmol/L Potassium 4.2 (3.5-5.3) mmol/L Chloride 101 (100-110) mmol/L Carbon Dioxide 25 (21-32) mmol/L BUN 15 (7-18) mg/dL Creatinine 1.0 (0.55-1.02) mg/dL Est Cr Clr Drug Dosing 85.72 mL/min Estimated GFR (MDRD) > 60 (>60) BUN/Creatinine Ratio 15.0 (9-20) Glucose 116 (80-116) mg/dL Calcium 9.3 (8.6-10.2) mg/dL Total Bilirubin 0.2 (0.1-1.3) mg/dL AST 12 D (5-25) IU/L ALT 23 D (12-36) U/L Alkaline Phosphatase 70 (56-112) IU/L Total Protein 8.0 (6.0-8.0) g/dL Albumin 4.1 (3.5-5.2) g/dL Globulin 3.9 g/dL Albumin/Globulin Ratio 1.1 Amylase 28 (25-115) U/L Lipase 77 (73-393) U/L Urine Color (YELLOW) Urine Appearance (CLEAR) Urine pH (5.0-6.5) Ur Specific [place] (1.010-1.025) Urine Protein (NEGATIVE) mg/dL Urine Glucose (UA) (NORMAL) mg/dL Urine Ketones (NEGATIVE) mg/dL Urine Occult Blood (NEGATIVE) Urine Nitrite (NEGATIVE) Urine Bilirubin (NEGATIVE) Urine Urobilinogen (NEGATIVE) mg/dL Ur Leukocyte Esterase (NEGATIVE) Urine WBC (0-5) Ur Squamous Epith Cells (NS,R,O) Urine Bacteria (NS) Urine HCG, Qual (NEGATIVE) Meds: Medications Discontinued Medications Generic Name Dose Route Start Last Admin Trade Name Freq PRN Reason Stop Dose Admin Al Hydroxide/Mg Hydroxide 15 0 ml 04/05/20 13:21 04/05/20 13:58 ml/ Lidocaine HCl 15 ml PO 04/05/20 13:22 30 ml ONETIME ONE Administration Al Hydroxide/Mg Hydroxide 15 0 ml 04/05/20 13:22 04/05/20 13:58 ml/ Lidocaine HCl 15 ml PO 04/05/20 13:23 30 ml ONETIME ONE Administration Cyclobenzaprine HCl 10 mg 04/05/20 11:53 04/05/20 12:06 Flexeril PO 04/05/20 11:54 10 mg ONETIME ONE Administration Sodium Chloride 1,000 mls @ 999 mls/hr 04/05/20 13:30 04/05/20 13:54 Normal Saline IV 999 mls/hr ASDIRECTED YUKI Administration Iopamidol 100 ml 04/05/20 13:58 04/05/20 15:06 Isovue-370 (76%) IV 04/05/20 13:59 100 ml . DIRECTED ONE Administration Ketorolac Tromethamine 60 mg 04/05/20 11:51 04/05/20 12:04 Toradol IM 04/05/20 11:52 60 mg ONETIME ONE Administration Ondansetron HCl 4 mg 04/05/20 13:25 04/05/20 13:29 Zofran Odt PO 04/05/20 13:26 4 mg ONETIME ONE Administration Oxycodone/Acetaminophen 2 tab 04/05/20 11:52 Percocet 325-5 Mg PO ONETIME PRN Abdominal Pain Oxycodone/Acetaminophen 2 tab 04/05/20 11:55 04/05/20 12:05 Percocet 325-5 Mg PO 04/05/20 11:56 2 tab ONETIME ONE Administration Sodium Chloride 10 ml 04/05/20 13:16 Saline Flush FLUSH ASDIRECTED PRN Keep Vein Open Sodium Chloride 10 ml 04/05/20 13:21 Saline Flush FLUSH ASDIRECTED PRN Keep Vein Open Departure - Departure Time of Disposition: 15:40 Disposition: Home, Self-Care 01 Condition: Good Clinical Impression: COVID-19 - Discharge Information Instructions: COVID-19 Frequently Asked Questions Referrals: PCP,None [Primary Care Provider] - Forms: ED Department Discharge Additional Instructions: Please read discharge about COVID All your symptoms are related to COVID, give time for your body to heal Continue your Naproxen,Zofran, Dexamethasone as prescribed until gone Take your medicines after a meal because they can cause an upset stomach TUMS Ultra strength, 3 tablet chew and swallow with water for your upset stomach Follow up as needed Sepsis Event Note (ED) - Evaluation Sepsis Screening Result: No Definite Risk - Focused Exam Vital Signs: Vital Signs Temp Pulse Resp BP Pulse Ox 04/05/20 15:50 36.7 C 59 L 16 149/90 H 98 04/05/20 11:33 36.9 C 54 L 16 153/83 H 98 - My Orders Last 24 Hours: My Active Orders 04/05/20 13:16 Saline Lock Insert [OM.PC] Routine 04/05/20 13:21 Saline Lock Insert [OM.PC] Routine - Assessment/Plan Last 24 Hours: My Active Orders 04/05/20 13:16 Saline Lock Insert [OM.PC] Routine 04/05/20 13:21 Saline Lock Insert [OM.PC] Routine
--- NOTE | 2020-04-05 18:21 | CT ---
INDICATION: Abdominal pain, epigastric - left upper and right upper quadrants, positive for COVID-19 on 03/27/20. CT ABDOMEN AND PELVIS WITH CONTRAST: Spiral 3.75 mm axial sections were obtained through the abdomen with 100 mL Isovue-370 at 2 cc/second with sagittal and coronal reconstructions 04/05/20 - no comparisons. Total exam DLP was 1478.06 mGy-cm. Lower lung thompson and pleural spaces visualized appeared normal on the right with some minimal subpleural densities seen on the left in the lower lobe area. These could represent fibrosis, although very minimal process such as early or mild degree or resolving COVID pneumonia could be present. This should be correlated clinically. Heart is normal in size. No pericardial effusion was seen. The liver, gallbladder, adrenal glands, kidneys, spleen, and pancreas appear to be normal. Common bile duct was normal in caliber. No retroperitoneal mass was seen. The appendix appeared normal, visualized on axial images 88-95 and coronal images 39-41. No free air or definite bowel obstruction could be identified. There are multiple loops of jejunum which show evidence of thickening of the wall, raising question of a process such as Crohn's disease or possibly infectious process producing edema in the wall of the bowel. This should be correlated clinically. There is a relative paucity of stool and gas in the more distal colon, which may be incidental to a BM. Otherwise, no organomegaly, mass lesions or free fluid collections were identified with the ovaries somewhat symmetrical showing multiple follicles bilaterally - normal appearance felt to be present. IMPRESSION: 1. Multiple loops of jejunum with thickened wall noted in the left upper quadrant. CT of the abdomen with IV contrast was otherwise unremarkable. Findings may represent infectious process and should be correlated clinically. 2. Minimal subpleural parenchymal changes at the left lower lobe may represent fibrosis or possibly minimal areas of pneumonia which could be compatible with COVID-19 pneumonia, either minimal early or resolving - correlate clinically. Report was called to Dr. Lima at 1519 hours. [facility]
== END 2020-04-05 16:00 | disposition home or self-care (01) ==
LOC: FB.ED 11:33
DX: U07.1 COVID-19 (principal); R10.13 Epigastric pain; R10.12 Left upper quadrant pain; J45.909 Unspecified asthma, uncomplicated; F41.9 Anxiety disorder, unspecified; F32.9 Major depressive disorder, single episode, unspecified; E66.9 Obesity, unspecified; Z68.31 Body mass index [BMI] 31.0-31.9, adult; Z88.8 Allergy status to other drugs, medicaments and biological substances; Z79.899 Other long term (current) drug therapy
CPT/HCPCS: 36415; 74177; 80053; 81001; 81025; 82150; 83690; 85025; 96372; 99284; A9270; J1885; J7030; Q9967

== ENCOUNTER 2020-05-23 17:58 | Emergency (ER) | payer BC ==
--- NOTE | 2020-05-23 18:52 | EDM.PDOC ---
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 has had pain low abd and R flank continuous x 2m, only painfree "when I am sleeping" no change with activity/shower/food BM daily, soft had abd CT 04-07-20 in context WBC 21k and positive COVID, 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 [employer] 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, never had sob/cough/fever PMH includes asthma and mood disorder, last used alb HFA 2d ago, no wheeze now d/w Dr Nieto at change of shift, will obtain a repeat CT not taking pain meds at home, may be candidate for NSAIDS and APAP, may be candidate for GI referral if abnl CT sxs may be related to COVID, however IBD is a consideration - Related Data Allergies Allergy/AdvReac Type Severity Reaction Status Date / Time topiramate [From Topamax] Allergy Rash Verified 05/23/20 18:46 venlafaxine [From Effexor] Allergy Rash Verified 05/23/20 18:46 Home Meds: Home Meds Albuterol [Ventolin HFA] 2 puff INH Q4H PRN #1 inhaler 04/01/20 [Rx] Escitalopram Oxalate 20 mg PO DAILY 05/23/20 [History] traZODone HCl [Trazodone HCl] 100 mg PO BEDTIME 05/23/20 [History] Past Medical History HEENT History: Reports: None Cardiovascular History: Reports: None Respiratory History: Reports: Asthma Gastrointestinal History: Reports: None Genitourinary History: Reports: UTI, Recurrent 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 Endocrine/Metabolic History: Reports: Obesity/BMI 30+ Hematologic History: Reports: None Immunologic History: Reports: None Oncologic (Cancer) History: Reports: None Dermatologic History: Reports: None - Infectious Disease History Infectious Disease History: Reports: Novel Coronavirus - Past Surgical History Head Surgeries/Procedures: Reports: None Musculoskeletal Surgical History: Reports: None Social & Family History - Family History Family Medical History: No Pertinent Family History - Caffeine Use Caffeine Use: Reports: None ED ROS GENERAL - Review of Systems Review Of Systems: See Below Constitutional: Reports: No Symptoms HEENT: Reports: No Symptoms Respiratory: Reports: No Symptoms Cardiovascular: Reports: No Symptoms Endocrine: Reports: No Symptoms GI/Abdominal: Reports: Abdominal Pain. Denies: Constipation, Diarrhea, Nausea, Vomiting : Reports: No Symptoms Musculoskeletal: Reports: No Symptoms Skin: Reports: No Symptoms Neurological: Reports: No Symptoms Psychiatric: Reports: No Symptoms Hematologic/Lymphatic: Reports: No Symptoms Immunologic: Reports: No Symptoms ED EXAM, GI/ABD - Physical Exam Exam: See Below Exam Limited By: No Limitations General Appearance: Alert, WD/WN, No Apparent Distress Throat/Mouth: No Airway Compromise Head: Atraumatic, Normocephalic Neck: Normal Inspection, Supple, Non-Tender Respiratory/Chest: No Respiratory Distress, Lungs Clear, Normal Breath Sounds, No Accessory Muscle Use, Chest Non-Tender Cardiovascular: Regular Rate, Rhythm, No Edema, No Gallop, No JVD, No Murmur, No Rub GI/Abdominal Exam: Other (1+ tender across lower abd and along R flank, NT in epigastrium and L flank) Back Exam: Normal Inspection, Full Range of Motion. No: CVA Tenderness (R), CVA Tenderness (L) Extremities: Normal Inspection, Normal Range of Motion, Non-Tender, No Pedal Edema Neurological: Alert, Oriented, CN II-XII Intact, Normal Cognition, No Motor/Sensory Deficits Psychiatric: Normal Affect, Normal Mood Skin Exam: Warm, Dry, Intact, Normal Color, No Rash Lymphatic: No Adenopathy Course - Orders/Labs/Meds Orders: Active Orders 24 hr Category Date Time Status CBC WITH AUTO DIFF [HEME] Stat Lab 05/23/20 18:29 Ordered COMPREHENSIVE METABOLIC PN,CMP [CHEM] Stat Lab 05/23/20 18:29 Ordered CRP [C-REACTIVE PROTEIN] [CHEM] Stat Lab 05/23/20 18:29 Ordered Preg Urine [HCG QUALITATIVE,URINE] [URCHEM] Stat Lab 05/23/20 18:02 Ordered UA W/MICROSCOPIC [URIN] Stat Lab 05/23/20 18:02 Ordered - Re-Assessments/Exams Free Text/Narrative Re-Assessment/Exam: 05/23/20 19:13 uncertain sxs complex, may represent sequelae COVID, may have inflammatory bowel disease Departure - Departure Time of Disposition: 19:14 Disposition: Home, Self-Care 01 Condition: Good Clinical Impression: Lower abdominal pain, Right flank pain - Discharge Information *PRESCRIPTION DRUG MONITORING PROGRAM REVIEWED*: Not Applicable *COPY OF PRESCRIPTION DRUG MONITORING REPORT IN PATIENT ELI: Not Applicable Referrals: PCP,None [Primary Care Provider] - - My Orders Last 24 Hours: My Active Orders 05/23/20 18:02 Preg Urine [HCG QUALITATIVE,URINE] [URCHEM] Stat UA W/MICROSCOPIC [URIN] Stat 05/23/20 18:29 CBC WITH AUTO DIFF [HEME] Stat COMPREHENSIVE METABOLIC PN,CMP [CHEM] Stat CRP [C-REACTIVE PROTEIN] [CHEM] Stat - Assessment/Plan Last 24 Hours: My Active Orders 05/23/20 18:02 Preg Urine [HCG QUALITATIVE,URINE] [URCHEM] Stat UA W/MICROSCOPIC [URIN] Stat 05/23/20 18:29 CBC WITH AUTO DIFF [HEME] Stat COMPREHENSIVE METABOLIC PN,CMP [CHEM] Stat CRP [C-REACTIVE PROTEIN] [CHEM] Stat
[2020-05-23] MEDS ORDERED: Sodium Chloride 0.9% 1,000 ML IV ONE (19:09)
[2020-05-23] MEDS ORDERED: Iopamidol 755 Mg/ML 100 ML Bottle IV ONE (19:30)
[2020-05-23] MEDS ORDERED: Cyclobenzaprine 10 MG Tab PO ONE (20:50)
--- NOTE | 2020-05-24 07:14 | ER ---
DATE SEEN: 05/23/2020 ADDENDUM: I saw this patient after she had seen Dr. Martino. Pain seems to be more in the right lumbar area radiating to the lower abdomen and this has gone on for about a month. LABORATORY DATA: CBC, UA, and urine were negative today. CT abdomen and pelvis was also negative. IMPRESSION: Lower back pain. PLAN: Flexeril 10 mg at night. May use Tylenol as needed. Follow up with PCP to discuss physical therapy. I do not see any cause for abdominal pain. I feel it is probably radiating from the back. /[id number] GORAN/SERGEI
== END 2020-05-23 21:25 | disposition home or self-care (01) ==
LOC: FB.ED 17:58
DX: M54.5 Low back pain (principal); J45.909 Unspecified asthma, uncomplicated; E66.9 Obesity, unspecified; Z68.32 Body mass index [BMI] 32.0-32.9, adult; Z88.8 Allergy status to other drugs, medicaments and biological substances; Z79.899 Other long term (current) drug therapy
CPT/HCPCS: 36415; 74177; 80053; 81001; 81025; 85025; 86140; 99284; A9270; J7030; Q9967; 99283

== ENCOUNTER 2021-03-17 22:11 | Emergency (ER) | payer SELFPAY ==
[2021-03-17] MEDS ORDERED: Nitrofurantoin Monohydrate/Macrocrystalline 100 MG Cap PO ONE (22:12)
--- NOTE | 2021-03-17 22:55 | EDM.PDOC ---
ED HPI GENERAL MEDICAL PROBLEM - General Stated Complaint: abd pain 20 wks preg Time Seen by Provider: 03/17/21 22:15 Source of Information: Reports: Patient History Limitations: Reports: No Limitations - History of Present Illness INITIAL COMMENTS - FREE TEXT/NARRATIVE: Patient presented to the ED because of LLQ pain and suprapubic pain. She is 20 weeks AOG and just wanted to be checked. There is no fever, chills, N/V or flank pain. there is no no vaginal bleeding or discharge. left lower abdominal Pain Score (Numeric/FACES): 7 - Related Data Allergies Allergy/AdvReac Type Severity Reaction Status Date / Time topiramate [From Topamax] Allergy Rash Verified 05/23/20 18:46 venlafaxine [From Effexor] Allergy Rash Verified 05/23/20 18:46 Home Meds: Home Meds Albuterol [Ventolin HFA] 2 puff INH Q4H PRN #1 inhaler 04/01/20 [Rx] Escitalopram Oxalate 20 mg PO DAILY 05/23/20 [History] traZODone HCl [Trazodone HCl] 100 mg PO BEDTIME 05/23/20 [History] Past Medical History HEENT History: Reports: None Cardiovascular History: Reports: None Respiratory History: Reports: Asthma Gastrointestinal History: Reports: None Genitourinary History: Reports: UTI, Recurrent 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 Endocrine/Metabolic History: Reports: Obesity/BMI 30+ Hematologic History: Reports: None Immunologic History: Reports: None Oncologic (Cancer) History: Reports: None Dermatologic History: Reports: None - Infectious Disease History Infectious Disease History: Reports: Novel Coronavirus - Past Surgical History Head Surgeries/Procedures: Reports: None Musculoskeletal Surgical History: Reports: None Social & Family History - Family History Family Medical History: No Pertinent Family History - Caffeine Use Caffeine Use: Reports: None ED ROS GENERAL - Review of Systems Review Of Systems: See Below Constitutional: Reports: No Symptoms HEENT: Reports: No Symptoms Respiratory: Reports: No Symptoms Cardiovascular: Reports: No Symptoms Endocrine: Reports: No Symptoms GI/Abdominal: Reports: No Symptoms : Reports: No Symptoms Musculoskeletal: Reports: No Symptoms Skin: Reports: No Symptoms Neurological: Reports: No Symptoms Psychiatric: Reports: No Symptoms ED EXAM, GENERAL - Physical Exam Exam: See Below Exam Limited By: No Limitations General Appearance: Alert, No Apparent Distress Ears: Normal External Exam, Normal Canal, Hearing Grossly Normal Nose: Normal Inspection, Normal Mucosa, No Blood Throat/Mouth: Normal Inspection, Normal Lips Head: Atraumatic, Normocephalic Neck: Normal Inspection, Supple, Non-Tender, Full Range of Motion Respiratory/Chest: No Respiratory Distress, Lungs Clear, Normal Breath Sounds, No Accessory Muscle Use, Chest Non-Tender Cardiovascular: Normal Peripheral Pulses, Regular Rate, Rhythm, No Edema, No Gallop, No JVD, No Murmur, No Rub GI/Abdominal: Normal Bowel Sounds, Soft, Non-Tender, No Distention, No Abnormal Bruit, Other ([id number]) Extremities: Normal Inspection, Normal Range of Motion, Non-Tender, No Pedal Edema, Normal Capillary Refill Neurological: Alert, Oriented, CN II-XII Intact, Normal Cognition, Normal Gait, Normal Reflexes, No Motor/Sensory Deficits Psychiatric: Normal Affect, Normal Mood Course - Vital Signs Text/Narrative:: UA-see result Last Recorded V/S: Last Vital Signs Temp 36.3 C 03/17/21 22:15 Pulse 80 03/17/21 22:15 Resp 18 03/17/21 22:15 BP 145/72 H 03/17/21 22:15 Pulse Ox 98 03/17/21 22:15 - Orders/Labs/Meds Labs: Laboratory Tests 03/17/21 Range/Units 22:30 Urine Color Yellow (YELLOW) Urine Appearance Clear (CLEAR) Urine pH 5.0 (5.0-6.5) Ur Specific [place] 1.025 (1.010-1.025) Urine Protein Negative (NEGATIVE) mg/dL Urine Glucose (UA) Normal (NORMAL) mg/dL Urine Ketones Negative (NEGATIVE) mg/dL Urine Occult Blood Negative (NEGATIVE) Urine Nitrite Negative (NEGATIVE) Urine Bilirubin Small H (NEGATIVE) Urine Urobilinogen 4 H (NEGATIVE) mg/dL Ur Leukocyte Esterase Small H (NEGATIVE) Urine RBC 0-5 (0-5) Urine WBC 0-5 (0-5) Ur Squamous Epith Cells Few H (NS,R,O) Urine Bacteria Few H (NS) Meds: Medications Discontinued Medications Generic Name Dose Route Start Last Admin Trade Name Jeffrey PRN Reason Stop Dose Admin Nitrofurantoin Macrocrystals 1,000 mg 03/17/21 22:12 Nitrofurantoin Monohydrate/Macrocrystalline 100 Mg Cap PO 03/17/21 22:13 .STK-MED ONE Departure - Departure Time of Disposition: 23:00 Disposition: Home, Self-Care 01 Condition: Good Clinical Impression: Abdominal pain affecting - Discharge Information Instructions: Abdominal Pain During , [id number], and Urinary Tract Infection Referrals: Mehrdad Nieto MD [Primary Care Provider] - Forms: ED Department Discharge Additional Instructions: Please read discharge instructions on abdominal pain during your Take tylenol 1000 mg every 8 hours as needed for pain N+Macrobid/Nitrofurantoin 1 tablet twice daily for 5 days Return to the ED if you develop fever, nausea, vomiting,otherwise, follow up with your OCCUPATIONAL THERAPY DEPARTMENT CHAIR
== END 2021-03-17 23:10 | disposition home or self-care (01) ==
LOC: FB.ED 22:11
DX: O99.891 Other specified diseases and conditions complicating pregnancy (principal); R10.32 Left lower quadrant pain; O99.512 Diseases of the respiratory system complicating pregnancy, second trimester; J45.909 Unspecified asthma, uncomplicated; O99.212 Obesity complicating pregnancy, second trimester; E66.9 Obesity, unspecified; Z86.16 Personal history of COVID-19; Z88.8 Allergy status to other drugs, medicaments and biological substances; Z79.899 Other long term (current) drug therapy; Z3A.20 20 weeks gestation of pregnancy
CPT/HCPCS: 81001; 87086; 99284; A9270-GY